=== PATIENT | female | born 2000 | race Caucasian/White ===

== ENCOUNTER 2018-01-25 00:08 | Inpatient (IN) | payer BC ==
[2018-01-25] MEDS ORDERED: Lidocaine 1% 50 ML MDV INJECT PRN (01:14)
[2018-01-25] MEDS ORDERED: Sodium Chloride 0.9% 10 ML Syringe FLUSH PRN (01:14)
[2018-01-25] MEDS ORDERED: Ampicillin 2 GM in Sodium Chloride 0.9% 100 ML IV ONE (01:14)
[2018-01-25] MEDS ORDERED: Methylergonovine 0.2 MG/1 ML Amp IM PRN (01:14)
[2018-01-25] MEDS ORDERED: Misoprostol 200 MCG Tab PO PRN (01:14)
[2018-01-25] MEDS ORDERED: Water For Irrigation,Sterile 1,000 ML Container IRR PRN (01:14)
[2018-01-25] MEDS ORDERED: Tranexamic Acid 1,000 MG in Sodium Chloride 0.9% 100 ML IV PRN (01:14)
[2018-01-25] MEDS ORDERED: Carboprost Tromethamine 250 MCG/1 ML Amp IM PRN (01:14)
[2018-01-25] MEDS ORDERED: Sodium Chloride 0.9% 2.5 ML Syringe FLUSH PRN (01:14)
[2018-01-25] MEDS ORDERED: Lactated Ringers 1,000 ML IV SCH (01:15)
[2018-01-25] MEDS ORDERED: Oxytocin/0.9 % Sodium Chloride 30 UNIT/500 ML BAG IV SCH (01:15)
[2018-01-25] MEDS ORDERED: Diphtheria,Pertussis(Acell),Tetanus Vaccine 0.5 ML Syringe IM ONE (01:40)
[2018-01-25] MEDS: Nalbuphine 10 MG/1 ML Vial IVPUSH PRN ×3 (04:57→08:36)
[2018-01-25] MEDS: Ampicillin 1 GM in Sodium Chloride 0.9% 50 ML IV SCH ×2 (05:00→08:46)
--- NOTE | 2018-01-25 08:15 | PCM.LDHP ---
L&D History of Present Illness - General Date of Service: 01/25/18 Admit Problem/Dx: Patient Status Order with Admit Dx/Problem 01/25/18 00:09 Patient Status [ADT] Routine 01/25/18 01:14 Patient Status [ADT] Routine Admission Diagnosis/Problem Admission Diagnosis/Problem - planned 01/25/18 08:09 17yo EDC 02/17/2018 36 5/7 wks. O-, [place], GBS unkwn. SROM clear on 01/24/18 @ 0393. Source of Information: Patient History Limitations: Reports: No Limitations - History of Present Illness Pain Score: 6 Improves with: Reports: None Worsens with: Reports: None Associated Symptoms: Reports: N - Related Data Allergies/Adverse Reactions: Allergies Allergy/AdvReac Type Severity Reaction Status Date / Time morphine Allergy Agitation Verified 01/25/18 01:14 Home Medications: Home Meds . [No Known Home Meds] 01/18/18 [History] Past Medical History T[employer]ER History: Reports: - Past Surgical History HEENT Surgical History: Reports: Other (See Below) Other HEENT Surgeries/Procedures: lip injury at 2 years+ Social & Family History - Family History Family Medical History: Noncontributory - Tobacco Use Smoking Status *Q: Never Smoker Second Hand Smoke Exposure: No H&P Review of Systems - Review of Systems: Review Of Systems: See Below General: Reports: No Symptoms HEENT: Reports: No Symptoms Pulmonary: Reports: No Symptoms Cardiovascular: Reports: No Symptoms Gastrointestinal: Reports: No Symptoms Genitourinary: Reports: No Symptoms Musculoskeletal: Reports: No Symptoms Skin: Reports: No Symptoms Psychiatric: Reports: No Symptoms Neurological: Reports: No Symptoms Hematologic/Lymphatic: Reports: No Symptoms Immunologic: Reports: No Symptoms L&D Exam - Exam Exam: See Below - Vital Signs Weight: 86.636 kg - OB Specific Contraction Intensity: Strong Movement: Active Heart Tones: Present Heart Rate (FHR) Variability: Moderate (6-25 bmp) Presentation: Vertex Estimated Weight: 2800 - Sinha Score Sinha Score Cervix Position: Midposition Sinha Score Consistency: Soft Sinha Score Effacement: >80% Sinha Score Dilation: 3-4 cm Sinha Score 's Station: -1 ,0 Sinha Score Total: 10 - Exam General: Alert, Oriented, Cooperative, Mild Distress HEENT: Hearing Intact Lungs: Clear to Auscultation, Normal Respiratory Effort Cardiovascular: Regular Rate, Regular Rhythm, Normal S1, Normal S2 GI/Abdominal Exam: Normal Bowel Sounds, Soft, Non-Tender, No Organomegaly, No Distention, No Abnormal Bruit, No Mass, Pelvis Stable Rectal Exam: Deferred Genitourinary: Normal external exam, Normal bimanual exam, Cervical dilitation Back Exam: Normal Inspection, Full Range of Motion Extremities: Normal Inspection, Normal Range of Motion, Non-Tender, No Pedal Edema, Normal Capillary Refill Skin: Warm, Dry, Intact Neurological: Cranial Nerves Intact, Reflexes Equal Bilateral, Strength Equal Bilateral, Normal Speech, Normal Tone Psychiatric: Alert, Normal Affect, Normal Mood - Patient Data Lab Results Last 24 hrs: Laboratory Results - last 24 hr 01/25/18 01/25/18 01/25/18 Range/Units 00:20 01:27 01:27 WBC 15.61 H (4.0-11.0) K/uL RBC 4.10 L (4.30-5.90) M/uL Hgb 12.9 (12.0-16.0) g/dL Hct 37.5 (36.0-46.0) % MCV 91.5 (80.0-98.0) fL MCH 31.5 (27.0-32.0) pg MCHC 34.4 (31.0-37.0) g/dL RDW Std Deviation 39.8 (28.0-62.0) fl RDW Coeff of Elisa 12 (11.0-15.0) % Plt Count 214 (150-400) K/uL MPV 12.20 H (7.40-12.00) fL Membrane Rupture POSITIVE Blood Type O NEGATIVE Antibody Screen NEGATIVE Result Diagrams: 01/25/18 01:27 - Problem List (1) Supervision of normal IUP (intrauterine ) in primigravida SNOMED Code(s): 75072338, 882878362, 787059265, 430851270 ICD Code: Z34.00 - ENCNTR FOR SUPRVSN OF NORMAL FIRST , UNSP TRIMESTER Status: Acute Priority: High Current Visit: Yes Qualifiers: Trimester: third trimester Qualified Code(s): Z34.03 - Encounter for supervision of normal first , third trimester (2) SROM (spontaneous rupture of membranes) SNOMED Code(s): 445956610 ICD Code: [id number] - Status: Acute Priority: High Current Visit: Yes Problem List Initiated/Reviewed/Updated: Yes Orders Last 24hrs: Active Orders 24 hr Category Date Time Status Patient Status [ADT] Routine ADT 01/25/18 00:09 Active Patient Status [ADT] Routine ADT 01/25/18 01:14 Active Heart Tones [RC] CONTINUOUS Care 01/25/18 01:14 Active Non Stress Test [RC] PER UNIT ROUTINE Care 01/25/18 00:09 Active Non Stress Test [RC] PER UNIT ROUTINE Care 01/25/18 01:14 Active May Shower [RC] ASDIRECTED Care 01/25/18 01:14 Active Notify Provider [RC] PRN Care 01/25/18 01:14 Active Up ad Sulema [RC] ASDIRECTED Care 01/25/18 00:09 Active Up ad Sulema [RC] ASDIRECTED Care 01/25/18 01:14 Active Vaccines to be Administered [RC] PER UNIT ROUTINE Care 01/25/18 01:40 Active Vaginal Exam [RC] Click to Edit Care 01/25/18 00:09 Active Vaginal Exam [RC] PRN Care 01/25/18 01:14 Active Vital Signs [RC] PER UNIT ROUTINE Care 01/25/18 00:09 Active Vital Signs [RC] PER UNIT ROUTINE Care 01/25/18 01:14 Active Ampicillin 1 gm Med 01/25/18 05:00 Active Sodium Chloride 0.9% [Normal Saline] 50 ml IV Q4H Carboprost Tromethamine [Hemabate DS] Med 01/25/18 01:14 Active 250 mcg IM ASDIRECTED PRN Lactated Ringers [Ringers, Lactated] 1,000 ml Med 01/25/18 01:15 Active IV ASDIRECTED Lidocaine 1% [Xylocaine 1%] Med 01/25/18 01:14 Active 50 ml INJECT ONETIME PRN Methylergonovine [Methergine] Med 01/25/18 01:14 Active 0.2 mg IM ASDIRECTED PRN Nalbuphine [Nubain] Med 01/25/18 04:08 Active 10 mg IVPUSH Q1H PRN Oxytocin/0.9 % Sodium Chloride [Oxytocin 30 Unit/500 ML Med 01/25/18 01:15 Active -NS] 30 unit in 500 ml IV TITRATE Sodium Chloride 0.9% [Saline Flush] Med 01/25/18 01:14 Active 10 ml FLUSH ASDIRECTED PRN Sodium Chloride 0.9% [Saline Flush] Med 01/25/18 01:14 Active 2.5 ml FLUSH ASDIRECTED PRN Tranexamic Acid [Cyklokapron] 1,000 mg Med 01/25/18 01:14 Active Sodium Chloride 0.9% [Normal Saline] 100 ml IV ONETIME Water For Irrigation,Sterile [Sterile Water for Med 01/25/18 01:14 Active Irrigation] 1,000 ml IRR ASDIRECTED PRN miSOPROStol [Cytotec] Med 01/25/18 01:14 Active 200 mcg PO ONETIME PRN Scalp Electrode [WOMSER] Per Unit Routine Oth 01/25/18 01:14 Ordered Peripheral IV Insertion Adult [OM.PC] Routine Oth 01/25/18 01:14 Ordered Resuscitation Status Routine Resus Stat 01/25/18 00:09 Ordered Medication Orders Carboprost Tromethamine (Hemabate Ds) 250 mcg IM ASDIRECTED PRN PRN Reason: Post Hemorrhage Tranexamic Acid 1,000 mg/ (Sodium Chloride) 110 mls @ 660 mls/hr IV ONETIME PRN PRN Reason: Bleeding Lactated Ringer's (Ringers, Lactated) 1,000 mls @ 150 mls/hr IV ASDIRECTED [facility] Last Admin: 01/25/18 01:25 Dose: 500 mls/hr Oxytocin/Sodium Chloride (Oxytocin 30 Unit/500 Ml-Ns) 30 unit in 500 mls @ 500 mls/hr IV TITRATE [facility] Ampicillin Sodium 1 gm/ Sodium (Chloride) 50 mls @ 100 mls/hr IV Q4H [facility] Last Admin: 01/25/18 05:00 Dose: 100 mls/hr Lidocaine HCl (Xylocaine 1%) 50 ml INJECT ONETIME PRN PRN Reason: Laceration repair Methylergonovine Maleate (Methergine) 0.2 mg IM ASDIRECTED PRN PRN Reason: Post Hemorrhage Misoprostol (Cytotec) 200 mcg PO ONETIME PRN PRN Reason: Post Hemorrhage Nalbuphine HCl (Nubain) 10 mg IVPUSH Q1H PRN PRN Reason: Pain Last Admin: 01/25/18 07:32 Dose: 10 mg Admin: 01/25/18 04:57 Dose: 10 mg Sodium Chloride (Saline Flush) 10 ml FLUSH ASDIRECTED PRN PRN Reason: Keep Vein Open Sodium Chloride (Saline Flush) 2.5 ml FLUSH ASDIRECTED PRN PRN Reason: Keep Vein Open Sterile Water (Sterile Water For Irrigation) 1,000 ml IRR ASDIRECTED PRN PRN Reason: delivery Assessment/Plan Comment:: SROM Admit A:17yo EDC 02/17/2018 36 5/7 wks. O-, [place], GBS unkwn. SROM clear on 01/24/18 @1145. Desires Epidural now P: Admit, epidural/pain meds prn, Amp for GBS unkwn, anticipate , Dr Castro updated
--- NOTE | 2018-01-25 08:59 | PCM.PREANE ---
Preanesthetic Assessment - Anesthesia/Transfusion/Family Hx Anesthesia History: Prior Anesthesia Without Reaction Family History of Anesthesia Reaction: No Transfusion History: No Prior Transfusion(s) - Review of Systems General: No Symptoms Pulmonary: No Symptoms Cardiovascular: No Symptoms Gastrointestinal: No Symptoms Neurological: No Symptoms Other: Reports: None - Physical Assessment Height: 5 ft 6 in Weight: 86.636 kg ASA Class: 2 Mental Status: Alert & Oriented x3 Airway Class: Mallampati = 2 Dentition: Reports: Normal Dentition Thyro-Mental Finger Breadths: 3 Mouth Opening Finger Breadths: 3 Lungs: Clear to Auscultation, Normal Respiratory Effort Cardiovascular: Regular Rate, Regular Rhythm - Lab Values: Laboratory Last Values WBC 15.61 K/uL (4.0-11.0) H 01/25/18 01:27 RBC 4.10 M/uL (4.30-5.90) L 01/25/18 01:27 Hgb 12.9 g/dL (12.0-16.0) 01/25/18 01:27 Hct 37.5 % (36.0-46.0) 01/25/18 01:27 MCV 91.5 fL (80.0-98.0) 01/25/18 01:27 MCH 31.5 pg (27.0-32.0) 01/25/18 01:27 MCHC 34.4 g/dL (31.0-37.0) 01/25/18 01:27 RDW Std Deviation 39.8 fl (28.0-62.0) 01/25/18 01:27 RDW Coeff of Elisa 12 % (11.0-15.0) 01/25/18 01:27 Plt Count 214 K/uL (150-400) 01/25/18 01:27 MPV 12.20 fL (7.40-12.00) H 01/25/18 01:27 Membrane Rupture POSITIVE 01/25/18 00:20 Blood Type O NEGATIVE 01/25/18 01:27 Antibody Screen NEGATIVE 01/25/18 01:27 - Allergies Allergies/Adverse Reactions: Allergies Allergy/AdvReac Type Severity Reaction Status Date / Time morphine Allergy Agitation Verified 01/25/18 01:14 - Blood Blood Available: No - Acknowledgements Anesthesia Type Planned: Epidural Pt an Appropriate Candidate for the Planned Anesthesia: Yes Alternatives and Risks of Anesthesia Discussed w Pt/Guardian: Yes Pt/Guardian Understands and Agrees with Anesthesia Plan: Yes PreAnesthesia Questionnaire HEENT History: Reports: None Cardiovascular History: Reports: None Respiratory History: Reports: None Gastrointestinal History: Reports: GERD Genitourinary History: Reports: None 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 [No Known Home Meds] 01/18/18 [History] - CURRENT (IN HOUSE) MEDS Current Meds: Current Medications Carboprost Tromethamine (Hemabate Ds) 250 mcg IM ASDIRECTED PRN PRN Reason: Post Hemorrhage Tranexamic Acid 1,000 mg/ (Sodium Chloride) 110 mls @ 660 mls/hr IV ONETIME PRN PRN Reason: Bleeding Lactated Ringer's (Ringers, Lactated) 1,000 mls @ 150 mls/hr IV ASDIRECTED PATRICIA Last Admin: 01/25/18 01:25 Dose: 500 mls/hr Oxytocin/Sodium Chloride (Oxytocin 30 Unit/500 Ml-Ns) 30 unit in 500 mls @ 500 mls/hr IV TITRATE PATRICIA Ampicillin Sodium 1 gm/ Sodium (Chloride) 50 mls @ 100 mls/hr IV Q4H [facility] Last Admin: 01/25/18 08:46 Dose: 100 mls/hr Lidocaine HCl (Xylocaine 1%) 50 ml INJECT ONETIME PRN PRN Reason: Laceration repair Methylergonovine Maleate (Methergine) 0.2 mg IM ASDIRECTED PRN PRN Reason: Post Hemorrhage Misoprostol (Cytotec) 200 mcg PO ONETIME PRN PRN Reason: Post Hemorrhage Nalbuphine HCl (Nubain) 10 mg IVPUSH Q1H PRN PRN Reason: Pain Last Admin: 01/25/18 08:36 Dose: 10 mg Sodium Chloride (Saline Flush) 10 ml FLUSH ASDIRECTED PRN PRN Reason: Keep Vein Open Sodium Chloride (Saline Flush) 2.5 ml FLUSH ASDIRECTED PRN PRN Reason: Keep Vein Open Sterile Water (Sterile Water For Irrigation) 1,000 ml IRR ASDIRECTED PRN PRN Reason: delivery Discontinued Medications Diphtheria/Tetanus/Acell Pertussis (Adacel) 0.5 ml IM .ONCE ONE Stop: 01/25/18 01:41 Ampicillin Sodium 2 gm/ Sodium (Chloride) 100 mls @ 200 mls/hr IV ONETIME ONE Stop: 01/25/18 01:43 Last Admin: 01/25/18 01:35 Dose: 200 mls/hr
[2018-01-25] MEDS ORDERED: fentaNYL/Bupivacaine-NS 2 MCG/ML-0.125%/PF 100 ML Bag EP ONE (09:09)
[2018-01-25] MEDS ORDERED: Ibuprofen 400 MG Tab PO PRN (14:09)
[2018-01-25] MEDS ORDERED: Acetaminophen 500 MG Tab PO PRN ×2 (14:09)
[2018-01-25] MEDS ORDERED: Benzocaine/Menthol 20%-0.5% Spray 78 GM Cannister TOP PRN (14:09)
[2018-01-25] MEDS ORDERED: Lanolin 100% Cream 7 GM Tube TOP PRN (14:09)
[2018-01-25] MEDS ORDERED: Bisacodyl 10 MG Supp RECTAL PRN (14:09)
[2018-01-25] MEDS ORDERED: Witch Hazel Medicated Pads 40/Jar TOP PRN (14:09)
[2018-01-25] MEDS ORDERED: Docusate Sodium 100 MG Cap PO PRN (14:09)
[2018-01-25] MEDS ORDERED: Ondansetron 4 MG/2 ML SDV IVPUSH PRN (15:17)
--- NOTE | 2018-01-25 19:41 | PCM48HPAN ---
Post Anesthesia Note - EVALUATION WITHIN 48HRS OF ANESTHETIC Vital Signs in Normal Range: Yes Patient Participated in Evaluation: Yes Respiratory Function Stable: Yes Airway Patent: Yes Cardiovascular Function Stable: Yes Hydration Status Stable: Yes Pain Control Satisfactory: Yes Nausea and Vomiting Control Satisfactory: Yes Mental Status Recovered: Yes
[2018-01-26] MEDS: Ibuprofen 800 MG Tab PO PRN ×3 (03:13→17:06)
--- NOTE | 2018-01-26 07:55 | OR ---
SURGEON: Giovanni Castro MD DATE OF PROCEDURE: PROCEDURE: Vacuum-extraction delivery. INDICATIONS: Ms. Gonzales is a 17-year-old patient. She is followed in our clinic primarily by our nurse felter tennis balls. She is term. She is admitted in active labor and with spontaneous rupture of the membrane. The patient is required Pitocin augmentation. She became complete-complete, and she pushed in excess of 2 hours. She had epidural anesthesia for labor analgesia. I was consulted for possible vacuum extraction. DESCRIPTION OF PROCEDURE: Upon my arrival, her vital sign was stable. heart rate was category I, and pelvic examination reveals vertex. Vertex is +2 station in ANNE position. The patient is a candidate for vacuum extraction, and after explaining the vacuum extraction procedure to the patient. In the process, consent was taken. Kiwi vacuum extraction was used, and I was able to rotate the baby from ANNE to an OA and accomplish a vaginal delivery without any problem. The fetus cried immediately when it is delivered. score later on reported to be 7 and 9, and the placenta delivered spontaneous complete and intact without any problem, and there was no episiotomy performed. There was no pelvic or perineal or labial laceration. ESTIMATED BLOOD LOSS: 250 to 300 mL in this . COMPLICATIONS: There was no complication. AURELIO / MARCO /[id number]
--- NOTE | 2018-01-26 09:41 | PCM.DCSUM1 ---
Discharge Summary - Hospital Course Diagnosis: Stroke: No - Discharge Data Discharge Date: 01/26/18 Discharge Disposition: Home, Self-Care 01 Condition: Good - Patient Instructions Diet: Usual Diet as Tolerated Activity: As Tolerated Driving: Do Not Drive Showering/Bathing: May Shower Notify Provider of: Fever, Increased Pain, Nausea and/or Vomiting - Discharge Plan Home Medications: Home Meds . [No Known Home Meds] 01/18/18 [History] Referrals: [facility] [Outside] Rachel Aguirre CNM [Mid-] - 03/02/18 10:45 am - General Info Date of Service: 01/26/18 Functional Status: Reports: Pain Controlled - Review of Systems General: Reports: No Symptoms HEENT: Reports: No Symptoms Pulmonary: Reports: No Symptoms Cardiovascular: Reports: No Symptoms Gastrointestinal: Reports: No Symptoms Genitourinary: Reports: No Symptoms Musculoskeletal: Reports: No Symptoms Skin: Reports: No Symptoms Neurological: Reports: No Symptoms Psychiatric: Reports: No Symptoms - Patient Data Vitals - Most Recent: Last Vital Signs Temp 36.8 C 01/26/18 04:00 Pulse 74 01/26/18 04:00 Resp 18 01/26/18 04:00 BP 127/77 01/26/18 04:00 Pulse Ox 96 01/26/18 04:00 Weight - Most Recent: 86.636 kg Med Orders - Current: Current Medications Acetaminophen (Tylenol Extra Strength) 500 mg PO Q4H PRN PRN Reason: Pain Acetaminophen (Tylenol Extra Strength) 1,000 mg PO Q4H PRN PRN Reason: Pain Benzocaine/Menthol (Dermoplast Pain Relief 20%-0.5% [place]) 78 gm TOP ASDIRECTED PRN PRN Reason: Perineal Comfort Measure Bisacodyl (Dulcolax) 10 mg RECTAL ONETIME PRN PRN Reason: Constipation Docusate Sodium (Colace) 100 mg PO BID PRN PRN Reason: Constipation Emollient Ointment (Lansinoh Hpa) 0 gm TOP ASDIRECTED PRN PRN Reason: Sore Nipples Ibuprofen (Motrin) 400 mg PO Q4H PRN PRN Reason: Pain Ibuprofen (Motrin) 800 mg PO Q6H PRN PRN Reason: Pain Last Admin: 01/26/18 03:13 Dose: 800 mg Ondansetron HCl (Zofran) 4 mg IVPUSH Q6H PRN PRN Reason: Nausea/Vomiting Witch Dorothea (Tucks) 1 pad TOP ASDIRECTED PRN PRN Reason: comfort care Discontinued Medications Carboprost Tromethamine (Hemabate Ds) 250 mcg IM ASDIRECTED PRN PRN Reason: Post Hemorrhage Diphtheria/Tetanus/Acell Pertussis (Adacel) 0.5 ml IM .ONCE ONE Stop: 01/25/18 01:41 Tranexamic Acid 1,000 mg/ (Sodium Chloride) 110 mls @ 660 mls/hr IV ONETIME PRN PRN Reason: Bleeding Ampicillin Sodium 2 gm/ Sodium (Chloride) 100 mls @ 200 mls/hr IV ONETIME ONE Stop: 01/25/18 01:43 Last Admin: 01/25/18 01:35 Dose: 200 mls/hr Lactated Ringer's (Ringers, Lactated) 1,000 mls @ 150 mls/hr IV ASDIRECTED [facility] Last Admin: 01/25/18 01:25 Dose: 500 mls/hr Oxytocin/Sodium Chloride (Oxytocin 30 Unit/500 Ml-Ns) 30 unit in 500 mls @ 500 mls/hr IV TITRATE [facility] Last Admin: 01/25/18 13:56 Dose: 500 mls/hr Ampicillin Sodium 1 gm/ Sodium (Chloride) 50 mls @ 100 mls/hr IV Q4H [facility] Last Admin: 01/25/18 08:46 Dose: 100 mls/hr Fentanyl/Bupivacaine HCl (Umbapuce-Pagbe-Ib 2 Mcg/Ml-0.125%) Confirm Administered Dose 100 mls @ as directed EP .STK-MED ONE Stop: 01/25/18 09:09 Last Admin: 01/25/18 10:11 Dose: Not Given Lidocaine HCl (Xylocaine 1%) 50 ml INJECT ONETIME PRN PRN Reason: Laceration repair Methylergonovine Maleate (Methergine) 0.2 mg IM ASDIRECTED PRN PRN Reason: Post Hemorrhage Misoprostol (Cytotec) 200 mcg PO ONETIME PRN PRN Reason: Post Hemorrhage Nalbuphine HCl (Nubain) 10 mg IVPUSH Q1H PRN PRN Reason: Pain Last Admin: 09/24/18 08:36 Dose: 10 mg Sodium Chloride (Saline Flush) 10 ml FLUSH ASDIRECTED PRN PRN Reason: Keep Vein Open Sodium Chloride (Saline Flush) 2.5 ml FLUSH ASDIRECTED PRN PRN Reason: Keep Vein Open Sterile Water (Sterile Water For Irrigation) 1,000 ml IRR ASDIRECTED PRN PRN Reason: delivery - Exam General: Reports: Alert, Oriented HEENT: Reports: Pupils Equal, Pupils Reactive, EOMI, Mucous Membr. Moist/[place] Neck: Reports: Supple Lungs: Reports: Clear to Auscultation, Normal Respiratory Effort Cardiovascular: Reports: Regular Rate, Regular Rhythm GI/Abdominal Exam: Normal Bowel Sounds, Soft, Non-Tender, No Organomegaly, No Distention, No Abnormal Bruit, No Mass, Pelvis Stable (Female) Exam: Normal External Exam, Normal Speculum Exam, Normal Bimanual Exam Rectal (Female) Exam: Normal Exam, Normal Rectal Tone Back Exam: Reports: Normal Inspection, Full Range of Motion Extremities: Normal Inspection, Normal Range of Motion, Non-Tender, No Pedal Edema, Normal Capillary Refill Skin: Reports: Warm, Dry, Intact Wound/Incisions: Reports: Healing Well Neurological: Reports: No New Focal Deficit Psy/Mental Status: Reports: Alert, Normal Affect, Normal Mood
== END 2018-01-26 18:45 | disposition home or self-care (01) | DRG 560 ==
LOC: MW.OBCHECK 00:08 → MW.OB 00:10 → MW.OBCHECK 01:14 → MW.OB 01:14 → OBSVTOIN 14:11 → MW.OB 21:55
PROVIDERS: ADMIT Obstetrics & Gynecology; ATTEND Obstetrics & Gynecology
PROC: 10D07Z6 Extraction of Products of Conception, Vacuum, Via Natural or Artificial Opening (ICD-10-PCS; principal; 2018-01-25)
PROC: 00HU33Z Insertion of Infusion Device into Spinal Canal, Percutaneous Approach (ICD-10-PCS; 2018-01-25)
DX: O42.013 Preterm premature rupture of membranes, onset of labor within 24 hours of rupture, third trimester (principal); Z3A.36 36 weeks gestation of pregnancy; Z37.0 Single live birth; Z88.5 Allergy status to narcotic agent
CPT/HCPCS: 36415; 51702; 59025; 59409; 84112; 85027; 86850; 86900; 86901; 90715; A9270-GY; J0290; J2300; J2405; J2590; J7030; J7050; J7120

== ENCOUNTER 2020-09-15 07:23 | Inpatient (IN) | payer BC, OTHER ==
[2020-09-15] MEDS ORDERED: Lidocaine 1% 50 ML MDV INJECT PRN (07:38)
[2020-09-15] MEDS ORDERED: Misoprostol 25 MCG (1/4 of 100 MCG) Tab VAG PRN (07:38)
[2020-09-15] MEDS ORDERED: Misoprostol 25 MCG (1/4 of 100 MCG) Tab PO PRN (07:38)
[2020-09-15] MEDS ORDERED: Water For Irrigation,Sterile 1,000 ML Container IRR PRN (07:38)
[2020-09-15] MEDS ORDERED: Carboprost Tromethamine 250 MCG/1 ML Amp IM PRN (07:38)
[2020-09-15] MEDS ORDERED: Methylergonovine 0.2 MG/1 ML Amp IM PRN (07:38)
[2020-09-15] MEDS ORDERED: Misoprostol 200 MCG Tab PO PRN (07:38)
[2020-09-15] MEDS ORDERED: Terbutaline 1 MG/ML SDV SUBCUT PRN (07:38)
[2020-09-15] MEDS ORDERED: Butorphanol 1 MG/ML SDV IVPUSH PRN (07:38)
[2020-09-15] MEDS ORDERED: Sodium Chloride 0.9% 2.5 ML Syringe FLUSH PRN (07:38)
[2020-09-15] MEDS ORDERED: Ondansetron 4 MG/2 ML SDV IVPUSH PRN (07:38)
[2020-09-15] MEDS ORDERED: Nalbuphine 10 MG/1 ML Vial IVPUSH PRN (07:38)
[2020-09-15] MEDS ORDERED: Tranexamic Acid 1,000 MG in Sodium Chloride 0.9% 100 ML IV PRN (07:38)
[2020-09-15] MEDS ORDERED: Sodium Chloride 0.9% 10 ML SDV IV PRN (07:38)
[2020-09-15] MEDS ORDERED: Sodium Chloride 0.9% 10 ML Syringe FLUSH PRN (07:38)
[2020-09-15] MEDS ORDERED: Oxytocin/0.9 % Sodium Chloride 30 UNIT/500 ML BAG IV SCH ×2 (07:45)
--- NOTE | 2020-09-15 09:34 | PCM.LDHP ---
L&D History of Present Illness - General Date of Service: 09/15/20 Admit Problem/Dx: Patient Status Order with Admit Dx/Problem 09/15/20 07:39 Patient Status [ADT] Routine Admission Diagnosis/Problem Admission Diagnosis/Problem 09/15/20 09:27 presenting to L&D at 38 5/7 weeks (SAV: 09/24/20 by LMP) for induction of labor per Dr. Castro. O negative, Rubella immune, GBS negative; SVE per nurse report on admission was 2/80%/-1, midposition; history of PIH with first ; uncomplicated thus far Source of Information: Patient History Limitations: Reports: No Limitations - Related Data Allergies/Adverse Reactions: Allergies Allergy/AdvReac Type Severity Reaction Status Date / Time morphine Allergy Agitation Verified 04/25/18 15:48 Home Medications: Home Meds . 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 History: Reports: None Neurological History: Reports: None Psychiatric History: Reports: None Endocrine/Metabolic History: Reports: Obesity/BMI 30+ Oncologic (Cancer) History: Reports: None - Past Surgical History HEENT Surgical History: Reports: Other (See Below) Other HEENT Surgeries/Procedures: lip injury at 2 years+ Social & Family History - Family History Family Medical History: No Pertinent Family History - Caffeine Use Caffeine Use: Reports: None H&P Review of Systems - Review of Systems: Review Of Systems: See Below General: Reports: No Symptoms HEENT: Reports: No Symptoms Pulmonary: Reports: No Symptoms Cardiovascular: Reports: No Symptoms Gastrointestinal: Reports: No Symptoms Genitourinary: Reports: No Symptoms Musculoskeletal: Reports: No Symptoms Skin: Reports: No Symptoms Psychiatric: Reports: No Symptoms Neurological: Reports: No Symptoms Hematologic/Lymphatic: Reports: No Symptoms Immunologic: Reports: No Symptoms L&D Exam - Exam Exam: See Below - OB Specific Movement: Active Heart Tones: Present Heart Rate (FHR) Variability: Moderate (6-25 bmp) Presentation: Vertex - Sinha Score Isnha Score Cervix Position: Midposition Sinha Score Consistency: Soft Sinha Score Effacement: >80% Sinha Score Dilation: 1-2 cm Sinha Score Infant's Station: -1 ,0 Sinha Score Total: 9 - Exam General: Alert, Oriented, Cooperative Lungs: Normal Respiratory Effort Cardiovascular: Regular Rate, Regular Rhythm GI/Abdominal Exam: Soft, Non-Tender Rectal Exam: Deferred Genitourinary: Deferred Back Exam: Normal Inspection, Full Range of Motion Extremities: Normal Inspection, Normal Range of Motion, Non-Tender, Normal Capillary Refill Skin: Warm, Dry, Intact Neurological: Strength Equal Bilateral, Normal Speech, Normal Tone, Sensation Intact Psychiatric: Alert, Normal Affect, Normal Mood - Patient Data Lab Results Last 24 hrs: Laboratory Results - last 24 hr 09/15/20 Range/Units 07:40 WBC 9.74 (4.0-11.0) K/uL RBC 4.34 (4.30-5.90) M/uL Hgb 13.9 (12.0-16.0) g/dL Hct 40.8 (36.0-46.0) % MCV 94.0 (80.0-98.0) fL MCH 32.0 (27.0-32.0) pg MCHC 34.1 (31.0-37.0) g/dL RDW Std Deviation 46.0 (28.0-62.0) fl RDW Coeff of Elisa 13 (11.0-15.0) % Plt Count 187 (150-400) K/uL MPV 13.20 H (7.40-12.00) fL Nucleated RBC % 0.0 /100WBC Nucleated RBCs # 0 K/uL Result Diagrams: 09/15/20 07:40 - Problem List (1) Supervision of normal IUP (intrauterine ) in multigravida SNOMED Code(s): 982970577, 408071463, 086368482 ICD Code: Z34.80 - ENCOUNTER FOR SUPRVSN OF NORMAL , UNSP TRIMESTER Status: Acute Priority: High Current Visit: Yes Qualifiers: Trimester: third trimester Qualified Code(s): Z34.83 - Encounter for supervision of other normal , third trimester (2) History of induced hypertension SNOMED Code(s): 892673330, 230737140 ICD Code: Z87.59 - PERSONAL HISTORY OF COMP OF PREG, CHLDBRTH AND THE PUERP Status: Acute Priority: High Current Visit: Yes (3) Rh negative status during SNOMED Code(s): 324589974 ICD Code: O26.899 - OTH RELATED CONDITIONS, UNSPECIFIED TRIMESTER; Z67.91 - UNSPECIFIED BLOOD TYPE, RH NEGATIVE Status: Acute Priority: High Current Visit: Yes Qualifiers: Trimester: third trimester Qualified Code(s): O26.893 - Other specified related conditions, third trimester; Z67.91 - Unspecified blood type, Rh negative Problem List Initiated/Reviewed/Updated: Yes Orders Last 24hrs: Active Orders 24 hr Category Date Time Status Patient Status [ADT] Routine ADT 09/15/20 07:39 Active Bedrest Bathroom Privileges [RC] ASDIRECTED Care 09/15/20 07:39 Active Communication Order [RC] ASDIRECTED Care 09/15/20 07:39 Active Communication Order [RC] ASDIRECTED Care 09/15/20 07:39 Active Communication Order [RC] ASDIRECTED Care 09/15/20 07:39 Active Heart Tones [RC] CONTINUOUS Care 09/15/20 07:39 Active Non Stress Test [RC] PER UNIT ROUTINE Care 09/15/20 07:39 Active May Shower [RC] ASDIRECTED Care 09/15/20 07:39 Active Notify Provider [RC] PRN Care 09/15/20 07:39 Active Notify Provider [RC] PRN Care 09/15/20 07:39 Active Notify Provider [RC] PRN Care 09/15/20 07:39 Active Notify Provider [RC] STAT Care 09/15/20 07:39 Active Oxygen Therapy [RC] ASDIRECTED Care 09/15/20 07:39 Active Up ad Sulema [RC] ASDIRECTED Care 09/15/20 07:39 Active Vaginal Exam [RC] PRN Care 09/15/20 07:39 Active Vaginal Exam [RC] PRN Care 09/15/20 07:39 Active Vital Signs [RC] PER UNIT ROUTINE Care 09/15/20 07:39 Active Vital Signs [RC] PER UNIT ROUTINE Care 09/15/20 07:39 Active RPR (SYPHILIS SERO) W/ RFLX [REF] Routine Lab 09/15/20 07:40 Received TYPE AND SCREEN [BBK] Routine Lab 09/15/20 07:40 Received Butorphanol [Stadol] Med 09/15/20 07:38 Active 1 mg IVPUSH Q1H PRN Carboprost Tromethamine [Hemabate DS] Med 09/15/20 07:38 Active 250 mcg IM ASDIRECTED PRN Lactated Ringers [Ringers, Lactated] 1,000 ml Med 09/15/20 07:45 Active IV ASDIRECTED Lidocaine 1% [Xylocaine 1%] Med 09/15/20 07:38 Active 50 ml INJECT ONETIME PRN Methylergonovine [Methergine] Med 09/15/20 07:38 Active 0.2 mg IM ASDIRECTED PRN Nalbuphine [Nubain] Med 09/15/20 07:38 Active 10 mg IVPUSH Q1H PRN Ondansetron [Zofran] Med 09/15/20 07:38 Active 4 mg IVPUSH Q6H PRN Oxytocin/0.9 % Sodium Chloride [Oxytocin 30 Unit/500 ML Med 09/15/20 07:45 Active -NS] 30 unit in 500 ml IV TITRATE Oxytocin/0.9 % Sodium Chloride [Oxytocin 30 Unit/500 ML Med 09/15/20 07:45 Active -NS] 30 unit in 500 ml IV TITRATE Sodium Chloride 0.9% [Normal Saline] Med 09/15/20 07:38 Active 10 ml IV ASDIRECTED PRN Sodium Chloride 0.9% [Saline Flush] Med 09/15/20 07:38 Active 10 ml FLUSH ASDIRECTED PRN Sodium Chloride 0.9% [Saline Flush] Med 09/15/20 07:38 Active 2.5 ml FLUSH ASDIRECTED PRN Terbutaline [Brethine] Med 09/15/20 07:38 Active 0.25 mg SUBCUT ASDIRECTED PRN Tranexamic Acid [Cyklokapron] 1,000 mg Med 09/15/20 07:38 Active Sodium Chloride 0.9% [Normal Saline] 100 ml IV ONETIME Water For Irrigation,Sterile [Sterile Water for Med 09/15/20 07:38 Active Irrigation] 1,000 ml IRR ASDIRECTED PRN miSOPROStoL [Cytotec] Med 09/15/20 07:38 Active 200 mcg PO ONETIME PRN miSOPROStoL [Cytotec] Med 09/15/20 07:38 Active 25 mcg PO Q4H PRN miSOPROStoL [Cytotec] Med 09/15/20 07:38 Active 25 mcg VAG ONETIME PRN Scalp Electrode [WOMSER] Per Unit Routine Oth 09/15/20 07:39 Ordered Medication Administration Instruction [OM.PC] Q3H Oth 09/15/20 07:45 Ordered Peripheral IV Insertion Adult [OM.PC] Routine Oth 09/15/20 07:39 Ordered Resuscitation Status Routine Resus Stat 09/15/20 07:38 Ordered Medication Orders Butorphanol Tartrate (Butorphanol 1 Mg/Ml Sdv) 1 mg IVPUSH Q1H PRN PRN Reason: Pain Carboprost Tromethamine (Carboprost Tromethamine 250 Mcg/1 Ml Amp) 250 mcg IM ASDIRECTED PRN PRN Reason: Post Hemorrhage Oxytocin/Sodium Chloride (Oxytocin 30 Unit/500 Ml-Ns) 30 unit in 500 mls @ 999 mls/hr IV TITRATE PATRICIA Tranexamic Acid 1,000 mg/ (Sodium Chloride) 110 mls @ 660 mls/hr IV ONETIME PRN PRN Reason: Bleeding Oxytocin/Sodium Chloride (Oxytocin 30 Unit/500 Ml-Ns) 30 unit in 500 mls @ 2 mls/hr IV TITRATE PATRICIA; Protocol Lactated Ringer's (Ringers, Lactated) 1,000 mls @ 150 mls/hr IV ASDIRECTED PATRICIA Lidocaine HCl (Lidocaine 1% 50 Ml Mdv) 50 ml INJECT ONETIME PRN PRN Reason: Laceration repair Methylergonovine Maleate (Methylergonovine 0.2 Mg/1 Ml Amp) 0.2 mg IM ASDIRECTED PRN PRN Reason: Post Hemorrhage Misoprostol (Misoprostol 200 Mcg Tab) 200 mcg PO ONETIME PRN PRN Reason: Post Hemorrhage Misoprostol (Misoprostol 25 Mcg (1/4 Of 100 Mcg) Tab) 25 mcg VAG ONETIME PRN PRN Reason: Cervical Ripening Last Admin: 09/15/20 08:41 Dose: 25 mcg Documented by: AKHIL Misoprostol (Misoprostol 25 Mcg (1/4 Of 100 Mcg) Tab) 25 mcg PO Q4H PRN PRN Reason: Cervical Ripening Last Admin: 09/15/20 08:41 Dose: 25 mcg Documented by: AKHIL Nalbuphine HCl (Nalbuphine 10 Mg/1 Ml Vial) 10 mg IVPUSH Q1H PRN PRN Reason: Pain (severe 7-10) Ondansetron HCl (Ondansetron 4 Mg/2 Ml Sdv) 4 mg IVPUSH Q6H PRN PRN Reason: Nausea/Vomiting Sodium Chloride (Sodium Chloride 0.9% 10 Ml Syringe) 10 ml FLUSH ASDIRECTED PRN PRN Reason: Keep Vein Open Sodium Chloride (Sodium Chloride 0.9% 2.5 Ml Syringe) 2.5 ml FLUSH ASDIRECTED PRN PRN Reason: Keep Vein Open Sodium Chloride (Sodium Chloride 0.9% 10 Ml Sdv) 10 ml IV ASDIRECTED PRN PRN Reason: IV Use Sterile Water (Water For Irrigation,Sterile 1,000 Ml Container) 1,000 ml IRR DIRECTED PRN PRN Reason: delivery Terbutaline Sulfate (Terbutaline 1 Mg/Ml Sdv) 0.25 mg SUBCUT ASDIRECTED PRN PRN Reason: Tacysystole Assessment/Plan Comment:: Admit A: presenting to L&D at 38 5/7 weeks (SAV: 09/24/20 by LMP) for induction of labor per Dr. Castro. O negative, Rubella immune, GBS negative; SVE per nurse report on admission was 2/80%/-1, midposition; history of PIH with first ; uncomplicated thus far P: Admit for induction; cytotec to pitocin PRN; epidural PRN; anticipate ; Dr. Castro updated.
[2020-09-15] MEDS: Lactated Ringers 1,000 ML IV SCH ×2 (12:50→14:08)
[2020-09-15] MEDS ORDERED: Ropivacaine HCl/PF 0 ML ONE (13:08)
[2020-09-15] MEDS ORDERED: fentaNYL 100 MCG/2 ML SDV ONE (13:08)
--- NOTE | 2020-09-15 13:25 | PCM.PREANE ---
Preanesthetic Assessment - Anesthesia/Transfusion/Family Hx Anesthesia History: Prior Anesthesia Without Reaction Family History of Anesthesia Reaction: No Transfusion History: No Prior Transfusion(s) - Physical Assessment NPO Status Date: 09/15/20 NPO Status Time: 08:00 Height: 1.65 m Weight: 89.358 kg ASA Class: 2 - Lab Values: Laboratory Last Values WBC 9.74 K/uL (4.0-11.0) 09/15/20 07:40 RBC 4.34 M/uL (4.30-5.90) 09/15/20 07:40 Hgb 13.9 g/dL (12.0-16.0) 09/15/20 07:40 Hct 40.8 % (36.0-46.0) 09/15/20 07:40 MCV 94.0 fL (80.0-98.0) 09/15/20 07:40 MCH 32.0 pg (27.0-32.0) 09/15/20 07:40 MCHC 34.1 g/dL (31.0-37.0) 09/15/20 07:40 RDW Std Deviation 46.0 fl (28.0-62.0) 09/15/20 07:40 RDW Coeff of Elisa 13 % (11.0-15.0) 09/15/20 07:40 Plt Count 187 K/uL (150-400) 09/15/20 07:40 MPV 13.20 fL (7.40-12.00) H 09/15/20 07:40 Nucleated RBC % 0.0 /100WBC 09/15/20 07:40 Nucleated RBCs # 0 K/uL 09/15/20 07:40 Blood Type O NEGATIVE 09/15/20 07:40 Antibody Screen NEGATIVE 09/15/20 07:40 - Allergies Allergies/Adverse Reactions: Allergies Allergy/AdvReac Type Severity Reaction Status Date / Time morphine Allergy Agitation Verified 04/25/18 15:48 - Acknowledgements Anesthesia Type Planned: Epidural Pt an Appropriate Candidate for the Planned Anesthesia: Yes Alternatives and Risks of Anesthesia Discussed w Pt/Guardian: Yes Pt/Guardian Understands and Agrees with Anesthesia Plan: Yes PreAnesthesia Questionnaire - Past Health History Medical/Surgical History: Denies Medical/Surgical History HEENT History: Reports: None Cardiovascular History: Reports: None Respiratory History: Reports: None Gastrointestinal History: Reports: GERD Genitourinary History: Reports: None 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: Reports: 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 Neurological History: Reports: None Psychiatric History: Reports: None Endocrine/Metabolic History: Reports: Obesity/BMI 30+ Oncologic (Cancer) History: Reports: None - Infectious Disease History Infectious Disease History: Reports: None - Past Surgical History Head Surgeries/Procedures: Reports: None HEENT Surgical History: Reports: Other (See Below) Other HEENT Surgeries/Procedures: lip injury at 2 years+ - SUBSTANCE USE Tobacco Use Status *Q: Never Tobacco User Tobacco Use Within Last Twelve Months: No Second Hand Smoke Exposure: No Recreational Drug Use History: No - HOME MEDS Home Medications: Home Meds Pnv No.95/Ferrous Fum/Folic AC [ Tablet] 1 each PO DAILY 09/15/20 [History] - CURRENT (IN HOUSE) MEDS Current Meds: Current Medications Butorphanol Tartrate (Butorphanol 1 Mg/Ml Sdv) 1 mg IVPUSH Q1H PRN PRN Reason: Pain Carboprost Tromethamine (Carboprost Tromethamine 250 Mcg/1 Ml Amp) 250 mcg IM ASDIRECTED PRN PRN Reason: Post Hemorrhage Oxytocin/Sodium Chloride (Oxytocin 30 Unit/500 Ml-Ns) 30 unit in 500 mls @ 999 mls/hr IV TITRATE PATRICIA Tranexamic Acid 1,000 mg/ (Sodium Chloride) 110 mls @ 660 mls/hr IV ONETIME PRN PRN Reason: Bleeding Oxytocin/Sodium Chloride (Oxytocin 30 Unit/500 Ml-Ns) 30 unit in 500 mls @ 2 mls/hr IV TITRATE PATRICIA; Protocol Lactated Ringer's (Ringers, Lactated) 1,000 mls @ 150 mls/hr IV ASDIRECTED PATRICIA Lidocaine HCl (Lidocaine 1% 50 Ml Mdv) 50 ml INJECT ONETIME PRN PRN Reason: Laceration repair Methylergonovine Maleate (Methylergonovine 0.2 Mg/1 Ml Amp) 0.2 mg IM ASDIRECTED PRN PRN Reason: Post Hemorrhage Misoprostol (Misoprostol 200 Mcg Tab) 200 mcg PO ONETIME PRN PRN Reason: Post Hemorrhage Misoprostol (Misoprostol 25 Mcg (1/4 Of 100 Mcg) Tab) 25 mcg VAG ONETIME PRN PRN Reason: Cervical Ripening Last Admin: 09/15/20 08:41 Dose: 25 mcg Documented by: Misoprostol (Misoprostol 25 Mcg (1/4 Of 100 Mcg) Tab) 25 mcg PO Q4H PRN PRN Reason: Cervical Ripening Last Admin: 09/15/20 08:41 Dose: 25 mcg Documented by: Nalbuphine HCl (Nalbuphine 10 Mg/1 Ml Vial) 10 mg IVPUSH Q1H PRN PRN Reason: Pain (severe 7-10) Ondansetron HCl (Ondansetron 4 Mg/2 Ml Sdv) 4 mg IVPUSH Q6H PRN PRN Reason: Nausea/Vomiting Sodium Chloride (Sodium Chloride 0.9% 10 Ml Syringe) 10 ml FLUSH ASDIRECTED PRN PRN Reason: Keep Vein Open Sodium Chloride (Sodium Chloride 0.9% 2.5 Ml Syringe) 2.5 ml FLUSH ASDIRECTED PRN PRN Reason: Keep Vein Open Sodium Chloride (Sodium Chloride 0.9% 10 Ml Sdv) 10 ml IV ASDIRECTED PRN PRN Reason: IV Use Sterile Water (Water For Irrigation,Sterile 1,000 Ml Container) 1,000 ml IRR ASDIRECTED PRN PRN Reason: delivery Terbutaline Sulfate (Terbutaline 1 Mg/Ml Sdv) 0.25 mg SUBCUT ASDIRECTED PRN PRN Reason: Tacysystole Discontinued Medications Fentanyl (Fentanyl 100 Mcg/2 Ml Sdv) Confirm Administered Dose 100 mcg .ROUTE .STK-MED ONE Stop: 09/15/20 13:09 Ropivacaine (Naropin 0.2%) Confirm Administered Dose 100 mls @ as directed .ROUTE .STK-MED ONE Stop: 09/15/20 13:09
--- NOTE | 2020-09-15 13:29 | PCM.PRNOTE ---
- Free Text/Narrative Note: Anes NOte Patietn requests epidural fro L&D. Sitting position. Level L3-L4 midline approach. Sterile technique. Chloraprep scrub to lumbar area. Sterile fenestrated drape applied. Epidural space easily achieved single attempt using KIM technique. KIM at 3 cm. Cath threaded 5 cm with ease. Cath secured at skin using sterile clear adhesive dressing. 1316 test 3 cc 1.5% lido with epi negative. 1319 Load 10 cc 0.2% ropivicaine with 1 mcg cc fentanyl in slow divided doses. Sandie well. Time with patient [id number] Jesus Morgan CRNA
[2020-09-15] MEDS ORDERED: Lanolin 100% Cream 7 GM Tube TOP PRN (13:35)
[2020-09-15] MEDS ORDERED: Ibuprofen 800 MG Tab PO PRN (13:35)
[2020-09-15] MEDS ORDERED: Docusate Sodium 100 MG Cap PO PRN (13:35)
[2020-09-15] MEDS ORDERED: Acetaminophen 500 MG Tab PO PRN ×2 (13:35)
[2020-09-15] MEDS ORDERED: Bisacodyl 10 MG Supp RECTAL PRN (13:35)
[2020-09-15] MEDS ORDERED: Ibuprofen 400 MG Tab PO PRN (13:35)
[2020-09-15] MEDS ORDERED: Witch Hazel Medicated Pads 40/Jar TOP PRN (13:35)
[2020-09-15] MEDS ORDERED: Benzocaine/Menthol 20%-0.5% Spray 78 GM Cannister TOP PRN (13:35)
[2020-09-15] MEDS ORDERED: oxyCODONE 5 MG Tab PO PRN (13:35)
--- NOTE | 2020-09-16 06:58 | PCM48HPAN ---
Post Anesthesia Note - EVALUATION WITHIN 48HRS OF ANESTHETIC Vital Signs in Normal Range: Yes Patient Participated in Evaluation: Yes Respiratory Function Stable: Yes Airway Patent: Yes Cardiovascular Function Stable: Yes Hydration Status Stable: Yes Nausea and Vomiting Control Satisfactory: Yes Mental Status Recovered: Yes Vital Signs: Last Vital Signs Temp 35.6 C L 09/16/20 06:00 Pulse 76 09/16/20 06:00 Resp 18 09/16/20 06:00 BP 136/92 H 09/16/20 06:00 Pulse Ox 97 09/16/20 06:00
--- NOTE | 2020-09-16 09:51 | PCM.DCSUM1 ---
Discharge Summary - Hospital Course Free Text/Narrative:: Discharge home with . Follow up in the clinic in six weeks for routine visit; sooner, if needed. Diagnosis: Stroke: No Modified [place] Scale: No Symptoms at All Modified [place] Scale Score: 0 - Discharge Data Discharge Date: 09/16/20 Discharge Disposition: Home, Self-Care 01 Condition: Good - Referral to Home Health Primary Care Physician: PCP None - Discharge Diagnosis/Problem(s) (1) Supervision of normal IUP (intrauterine ) in multigravida SNOMED Code(s): 494085006, 915380702, 996911799 ICD Code: Z34.80 - ENCOUNTER FOR SUPRVSN OF NORMAL , UNSP TRIMESTER Status: Acute Priority: High Current Visit: Yes Qualifiers: Trimester: third trimester Qualified Code(s): Z34.83 - Encounter for supervision of other normal , third trimester (2) History of induced hypertension SNOMED Code(s): 298151601, 316035662 ICD Code: Z87.59 - PERSONAL HISTORY OF COMP OF PREG, CHLDBRTH AND THE PUERP Status: Acute Priority: High Current Visit: Yes (3) Rh negative status during SNOMED Code(s): 428758044 ICD Code: O26.899 - OTH RELATED CONDITIONS, UNSPECIFIED TRIMESTER; Z67.91 - UNSPECIFIED BLOOD TYPE, RH NEGATIVE Status: Acute Priority: High Current Visit: Yes Qualifiers: Trimester: third trimester Qualified Code(s): O26.893 - Other specified related conditions, third trimester; Z67.91 - Unspecified blood type, Rh negative - Patient Instructions Diet: Regular Diet as Tolerated, Drink 8-10+ Glasses/Day Activity: As Tolerated, No Strenuous Activities, Rest and Relax Today Driving: May Drive Today Showering/Bathing: May Shower Notify Provider of: Fever, Increased Pain, Swelling and Redness, Drainage, Nausea and/or Vomiting - Discharge Plan *PRESCRIPTION DRUG MONITORING PROGRAM REVIEWED*: Not Applicable *COPY OF PRESCRIPTION DRUG MONITORING REPORT IN PATIENT EDWARD: Not Applicable Prescriptions/Med Rec: Ibuprofen [Motrin] 800 mg PO Q6H PRN #90 tablet PRN Reason: Pain Home Medications: Home Meds Pnv No.95/Ferrous Fum/Folic AC [ Tablet] 1 each PO DAILY 09/15/20 [History] Ibuprofen [Motrin] 800 mg PO Q6H PRN #90 tablet 09/16/20 [Rx] Oxygen Therapy Mode: Room Air - Discharge Summary/Plan Comment DC Time >30 min.: Yes - General Info Date of Service: 09/16/20 Functional Status: Reports: Pain Controlled, Tolerating Diet, Ambulating, Urinating - Review of Systems General: Reports: No Symptoms HEENT: Reports: No Symptoms Pulmonary: Reports: No Symptoms Cardiovascular: Reports: No Symptoms Gastrointestinal: Reports: No Symptoms Genitourinary: Reports: No Symptoms Musculoskeletal: Reports: No Symptoms Skin: Reports: No Symptoms Neurological: Reports: No Symptoms Psychiatric: Reports: No Symptoms - Patient Data Vitals - Most Recent: Last Vital Signs Temp 98.4 F 09/16/20 08:54 Pulse 64 09/16/20 08:54 Resp 16 09/16/20 08:54 BP 135/81 09/16/20 08:54 Pulse Ox 95 09/16/20 08:54 Weight - Most Recent: 197 lb Lab Results - Last 24 hrs: Laboratory Results - last 24 hr 09/16/20 Range/Units 06:00 Hgb 13.6 (12.0-16.0) g/dL Hct 40.1 (36.0-46.0) % Med Orders - Current: Current Medications Acetaminophen (Acetaminophen 500 Mg Tab) 500 mg PO Q4H PRN PRN Reason: Pain Acetaminophen (Acetaminophen 500 Mg Tab) 1,000 mg PO Q4H PRN PRN Reason: Pain Benzocaine/Menthol (Benzocaine/Menthol 20%-0.5% [place] 78 Gm Cannister) 78 gm TOP ASDIRECTED PRN PRN Reason: Perineal Comfort Measure Last Admin: 09/15/20 17:03 Dose: 1 bottle Documented by: Bisacodyl (Bisacodyl 10 Mg Supp) 10 mg RECTAL ONETIME PRN PRN Reason: Constipation Butorphanol Tartrate (Butorphanol 1 Mg/Ml Sdv) 1 mg IVPUSH Q1H PRN PRN Reason: Pain Carboprost Tromethamine (Carboprost Tromethamine 250 Mcg/1 Ml Amp) 250 mcg IM ASDIRECTED PRN PRN Reason: Post Hemorrhage Docusate Sodium (Docusate Sodium 100 Mg Cap) 100 mg PO BID PRN PRN Reason: Constipation Emollient Ointment (Lanolin 100% Cream 7 Gm Tube) 0 gm TOP ASDIRECTED PRN PRN Reason: Sore Nipples Oxytocin/Sodium Chloride (Oxytocin 30 Unit/500 Ml-Ns) 30 unit in 500 mls @ 999 mls/hr IV TITRATE PATRICIA Last Admin: 09/15/20 14:11 Dose: 999 mls/hr Documented by: Tranexamic Acid 1,000 mg/ (Sodium Chloride) 110 mls @ 660 mls/hr IV ONETIME PRN PRN Reason: Bleeding Oxytocin/Sodium Chloride (Oxytocin 30 Unit/500 Ml-Ns) 30 unit in 500 mls @ 2 mls/hr IV TITRATE PATRICIA; Protocol Lactated Ringer's (Ringers, Lactated) 1,000 mls @ 150 mls/hr IV ASDIRECTED PATRICIA Last Admin: 09/15/20 14:08 Dose: 999 mls/hr Documented by: Ibuprofen (Ibuprofen 400 Mg Tab) 400 mg PO Q4H PRN PRN Reason: Pain Ibuprofen (Ibuprofen 800 Mg Tab) 800 mg PO Q6H PRN PRN Reason: Pain Last Admin: 09/15/20 17:03 Dose: 800 mg Documented by: Lidocaine HCl (Lidocaine 1% 50 Ml Mdv) 50 ml INJECT ONETIME PRN PRN Reason: Laceration repair Methylergonovine Maleate (Methylergonovine 0.2 Mg/1 Ml Amp) 0.2 mg IM ASDIRECTED PRN PRN Reason: Post Hemorrhage Misoprostol (Misoprostol 200 Mcg Tab) 200 mcg PO ONETIME PRN PRN Reason: Post Hemorrhage Misoprostol (Misoprostol 25 Mcg (1/4 Of 100 Mcg) Tab) 25 mcg VAG ONETIME PRN PRN Reason: Cervical Ripening Last Admin: 09/15/20 08:41 Dose: 25 mcg Documented by: Misoprostol (Misoprostol 25 Mcg (1/4 Of 100 Mcg) Tab) 25 mcg PO Q4H PRN PRN Reason: Cervical Ripening Last Admin: 09/15/20 08:41 Dose: 25 mcg Documented by: Nalbuphine HCl (Nalbuphine 10 Mg/1 Ml Vial) 10 mg IVPUSH Q1H PRN PRN Reason: Pain (severe 7-10) Ondansetron HCl (Ondansetron 4 Mg/2 Ml Sdv) 4 mg IVPUSH Q6H PRN PRN Reason: Nausea/Vomiting Oxycodone HCl (Oxycodone 5 Mg Tab) 5 mg PO Q2H PRN PRN Reason: Pain Sodium Chloride (Sodium Chloride 0.9% 10 Ml Syringe) 10 ml FLUSH ASDIRECTED PRN PRN Reason: Keep Vein Open Sodium Chloride (Sodium Chloride 0.9% 2.5 Ml Syringe) 2.5 ml FLUSH ASDIRECTED PRN PRN Reason: Keep Vein Open Sodium Chloride (Sodium Chloride 0.9% 10 Ml Sdv) 10 ml IV ASDIRECTED PRN PRN Reason: IV Use Sterile Water (Water For Irrigation,Sterile 1,000 Ml Container) 1,000 ml IRR ASDIRECTED PRN PRN Reason: delivery Terbutaline Sulfate (Terbutaline 1 Mg/Ml Sdv) 0.25 mg SUBCUT ASDIRECTED PRN PRN Reason: Tacysystole Witch Dorothea (Witch Dorothea Medicated Pads 40/Jar) 1 pad TOP ASDIRECTED PRN PRN Reason: comfort care Last Admin: 09/15/20 17:02 Dose: 1 can Documented by: Discontinued Medications Fentanyl (Fentanyl 100 Mcg/2 Ml Sdv) Confirm Administered Dose 100 mcg .ROUTE .STK-MED ONE Stop: 09/15/20 13:09 Ropivacaine (Naropin 0.2%) Confirm Administered Dose 100 mls @ as directed .ROUTE .STK-MED ONE Stop: 09/15/20 13:09 - Exam General: Reports: Alert, Oriented, Cooperative, No Acute Distress Lungs: Reports: Normal Respiratory Effort Cardiovascular: Reports: Regular Rate, Regular Rhythm GI/Abdominal Exam: Soft, Non-Tender (Female) Exam: Deferred Rectal (Female) Exam: Deferred Back Exam: Reports: Normal Inspection, Full Range of Motion Extremities: Normal Inspection, Normal Range of Motion, Non-Tender, Normal Capillary Refill Skin: Reports: Warm, Dry, Intact Wound/Incisions: Reports: Healing Well Neurological: Reports: No New Focal Deficit, Normal Gait, Normal Speech, Normal Tone, Strength Equal Bilateral, Sensation Intact Psy/Mental Status: Reports: Alert, Normal Affect, Normal Mood
--- NOTE | 2020-09-17 13:47 | OR ---
SURGEON: Giovanni Castro MD DATE OF PROCEDURE: 09/15/2020 DELIVERY NOTE: Ms. Eve Gonzales is 19-year-old patient. She is para 1-0-0-1. She is followed in our clinic primarily by me. The patient had no complication prenatally. Her GBS status was negative, and her diabetes screen was negative. She is admitted for elective induction. Because of previous issue with high blood pressure, she was induced with Cytotec and Pitocin. She responded to the Cytotec and Pitocin. She progressed rather quickly. She went 1 to 4 and then she had spontaneous rupture of membrane at 12 noon with clear fluid, and she went to 9 cm. She had epidural anesthesia at the last minute and then the patient progressed to complete, and she proceeded to have a normal spontaneous vaginal delivery of a male fetus. Cried immediately. score reported to be 8 and 9. The placenta delivered spontaneous, complete, and intact. Estimated blood loss is 300 to 350 mL. There was no need to episiotomy. There was no perineal or labial or vaginal laceration. heart rate was category 1 through the entire process of labor. There was no complication in the labor and delivery process of this patient. AURELIO / MARCO /[id number]
== END 2020-09-16 15:45 | disposition home or self-care (01) | DRG 560 ==
LOC: MW.OBCHECK 07:23 → MW.OB 07:27 → MW.OBCHECK 07:39 → OBSVTOIN 13:27 → MW.OB 17:00
PROVIDERS: ADMIT Obstetrics & Gynecology; ATTEND Obstetrics & Gynecology
PROC: 10E0XZZ Delivery of Products of Conception, External Approach (ICD-10-PCS; principal; 2020-09-15)
PROC: 3E0P7VZ Introduction of Hormone into Female Reproductive, Via Natural or Artificial Opening (ICD-10-PCS; 2020-09-15)
PROC: 3E033VJ Introduction of Other Hormone into Peripheral Vein, Percutaneous Approach (ICD-10-PCS; 2020-09-15)
PROC: 3E0R3BZ Introduction of Anesthetic Agent into Spinal Canal, Percutaneous Approach (ICD-10-PCS; 2020-09-15)
PROC: 00HU33Z Insertion of Infusion Device into Spinal Canal, Percutaneous Approach (ICD-10-PCS; 2020-09-15)
DX: O99.214 Obesity complicating childbirth (principal); E66.9 Obesity, unspecified; Z3A.38 38 weeks gestation of pregnancy; Z37.0 Single live birth; O26.899 Other specified pregnancy related conditions, unspecified trimester; Z67.41 Type O blood, Rh negative
CPT/HCPCS: 36415; 59025; 59409; 85014; 85018; 85027; 86592; 86850; 86900; 86901; A9270-GY; J2590; J3010; J7120